=== PATIENT | female | born 1995 | race Caucasian/White ===

== ENCOUNTER 2018-01-31 22:07 | Inpatient (IN) | payer MEDICAID, SELFPAY ==
[2018-01-31 22:34] LABS: Pregnancy Test - Urine (BHCG) POSITIVE (Negative); Pregu Control Background? CLEAR/WHITE (CLR/WHITE); Pregu Control Bar Appear? YES (CONTROL BAR); Specific Gravity 1.011 (1.002-1.036)
[2018-01-31 22:59] LABS: Bilirubin Negative (Negative); Blood, Urine Large (Negative); Clarity TURBID (Clear); Glucose, Urine (Dipstick) Negative (Negative); Leukocyte Moderate (Negative); Nitrite Negative (Negative); Protein, Urine (Dipstick) Trace mg/dL (Neg-Trace); Specific Gravity, Urine 1.011 (1.002-1.036); Urobilinogen 0.2 mg/dL (0.2-1.0); pH, Urine 6.5 (5.0-9.0)
[2018-01-31 23:00] LABS: RBC/HPF GREATER THAN 50-TNTC HPF (0-3); Squamous Epithelial 0-3 HPF (0-3); WBC/HPF 21-50 HPF (0-3)
[2018-01-31 23:01] LABS: Pathc Cast-AUWi Flag 3.24 (0-2.49)
[2018-01-31 23:14] LABS: Bacteria/HPF 1+ HPF (None Seen)
[2018-01-31 23:15] LABS: Hyaline Casts/LPF 0-3 HYALINE CAST LPF (0-3 Hyaline)
[2018-01-31 23:29] LABS: #Eosinphils 0.1 thou/uL (0.0-0.7); #Lymphocytes 1.9 thou/uL (1.20-3.40); #Monocytes 0.9 thou/uL (0.11-0.59); #Neutrophils 10.6 thou/uL (1.40-6.50); %Basophils 0.3 % (0.0-1.0); %Eosinophils 0.4 % (0.0-10.0); %Monocytes 6.6 % (0.0-10.0); %Neutrophils 78.6 % (42.0-75.0); Hemoglobin 12.8 g/dL (12.0-16.0); Mean Corpuscular HGB CONC 33.9 g/dL (32.0-36.0); Mean Corpuscular Hemoglobin 30.7 pg (27.0-31.0); Mean Corpuscular Volume 90.7 fL (78.0-98.0); Mean Platelet Volume 8.4 fL (7.4-10.4); Platelet Count 170 thou/uL (130-400); RBC Distribution Width 12.4 % (11.5-14.5); Red Blood Cell (RBC) Count 4.18 mill/uL (4.20-5.40); White Blood Cell (WBC) Count 13.5 thou/uL (4.8-10.8)
[2018-01-31 23:51] LABS: ALT (SGPT) 15 U/L (8-55); AST (SGOT) 16 U/L (5-34); Albumin 3.5 g/dL (3.5-5.0); Alkaline Phosphatase 147 U/L (40-150); Anion Gap 15 mmol/L (10-20); BUN (Urea Nitrogen) 5 mg/dL (7.0-18.7); Bilirubin, Total 0.4 mg/dL (0.2-1.2); Calc. Creatinine Clearance 0 mL/min (70-130); Calcium 9.3 mg/dL (7.8-10.44); Carbon Dioxide 20 mmol/L (22-29); Chloride 103 mmol/L (98-107); Estimated GFR-MDRD Greater than 90; Glucose 75 mg/dL (70-105); Potassium 3.8 mmol/L (3.5-5.1); Protein, Total 6.5 g/dL (6.0-8.3); Sodium 134 mmol/L (136-145)
[2018-02-01] MEDS ORDERED: Lidocaine 1% (PF) 30 ML VIAL SC PRN (01:06)
[2018-02-01] MEDS ORDERED: Ibuprofen 800 MG TAB PO PRN (01:06)
[2018-02-01] MEDS ORDERED: Ondansetron HCl/PF 4 MG/2 ML Vial IVP PRN ×2 (01:06→02:38)
[2018-02-01] MEDS ORDERED: Promethazine HCl 25 MG/ML VIAL IM PRN ×2 (01:06→02:38)
[2018-02-01] MEDS ORDERED: Penicillin G Potassium 5 MILL.UNITS in Sodium Chloride 0.9% 100 ML IVPB SCH (01:15)
--- NOTE | 2018-02-01 01:17 | PDOC.LDHP ---
Labor and Delivery H&P Chief complaint: contractions, loss of fluid HPI: 23 y/o F presented to the ED complaining of urinary incontinence. The patient reports that she was unaware she was and was diagnosed in the ED. She reports that she started having LOF around 6pm along with cramping abdominal pain. She reports that now that she thinks about it she does feel the baby move. She reports she had some vaginal spotting around a month and a half ago that she thought was a period, but no recent vaginal bleeding. She denies vaginal d/c. She denies H/A, vision changes, RUQ pain other than the abdominal cramping. Current gestational age (weeks): 36 (36w0d) Due date: 03/01/18 Dating criteria: other (3T US) Grav: 1 Para: 0 Current complications: other (No care) Abnormal US findings: Yes (Anhydramnios ) Past Medical History: None Current medications: none Previous surgical history: other (Cyst removed from R ovary, tonsillectomy) Social history: tobacco use (5-6 cig/day), alcohol use (1-2 drinks/month) - Physical Exam Vital signs reviewed and normal: yes General: NAD Heart: RRR Lungs: CTAB Abdomen: gravid Extremeties: no edema FHT: category 1, variability present Blandon contractions every: 2-3 minutes - Vaginal Exam cm dilated: 6 Effacement: 90% Station: -1 - OB Labs RH: positive Antibody Screen: unknown HIV: unknown RPR: unknown HEPSAg: unknown 1 hour GCT: unknown GBS: unknown - Assessment L&D Assessment: labor 23 y/o @ 36.0 WGA by 36.0 wk US here in labor LOF @ 1800 on 01/31 SVE /-1 Grossly ruptured on exam. Anhydramnios on US Patient had no care - Plan Plan: admit to L&D -: -Will run all IOB labs including Hep B, HIV, RPR, UDS, Type & Screen -Continuous monitoring -Will initiate GBS ppx due to poor dating, possibly pre-term @ 36 wks and GBS unknown -Epidural if desired -Will recheck cervix in 2-3 hours and if unchanged, will initiate pitocin <Moni Michaud - Last Filed: 02/01/18 01:13> <Florencio Becker - Last Filed: 02/01/18 01:49> Allergies/Adverse Reactions: Allergies Allergy/AdvReac Type Severity Reaction Status Date / Time No Known Allergies Allergy Verified 02/01/18 00:54 Attending Addendum - Attending Addendum Date/Time: 02/01/18 0147 I personally evaluated the patient and discussed the management with Dr. Michaud. 23 yo WF G1 unknown with apparent LOF at 6 pm. USG shows vtx beasley at 2800+ gms. SVE= 6 cm, gross SROM. Fhts reassuring, UCs q 3-4 min. I agree with the History, Examination, Assessment and Plan documented above. <Florencio Becker - Last Filed: 02/01/18 01:49>
[2018-02-01] MEDS: Lactated Ringer's 1,000 ML IV SCH ×2 (01:50→17:08)
[2018-02-01] MEDS ORDERED: DISCONTINUE ALL PREVIOUS NARCOTICS FS SCH (02:00)
[2018-02-01] MEDS ORDERED: Bupivacaine 0.5% 20 ML, fentaNYL Citrate/PF 400 MCG in Sodium Chloride 0.9% 72 ML EPIDURAL SCH (02:00)
[2018-02-01] MEDS ORDERED: Acetaminophen 325 MG TAB PO PRN (02:38)
[2018-02-01] MEDS ORDERED: diphenhydrAMINE 50 MG/ML VIAL IVP PRN (02:38)
[2018-02-01] MEDS ORDERED: Naloxone HCl 0.4 mg/ml Vial IVP PRN ×2 (02:38)
[2018-02-01] MEDS ORDERED: Eucerin (Mineral Oil/Petrolatum,White) 30 gm Jar TOP PRN (02:38)
[2018-02-01] MEDS ORDERED: ePHEDrine/0.9% NaCl/PF SYRINGE 50 mg/10 ml SLOW IVP PRN (02:38)
[2018-02-01] MEDS ORDERED: Lactated Ringer's 500 ML IV PRN (02:38)
[2018-02-01] MEDS ORDERED: fentaNYL Citrate/PF 400 MCG, Bupivacaine 0.5% 20 ML in Sodium Chloride 0.9% 72 ML EPIDURAL SCH (02:45)
[2018-02-01] MEDS ORDERED: Communication Order-Pharmacy FS SCH (02:45)
[2018-02-01 03:17] VITALS: BMI 36.3
[2018-02-01] MEDS: Penicillin G 2.5 MILL.units 2.5 MILL.UNITS in Premix Bag 1 BAG IVPB SCH ×2 (06:00→17:08)
--- NOTE | 2018-02-01 07:54 | PDOC.OPDEL ---
OB Operative/Delivery Note Delivery Dr/Surgeon: Dr. Michaud with Dr. Becker attending Pre-Delivery Diagnosis: active labor Procedure/Post Delivery Dx: spontaneous vaginal delivery Weeks gestation: 36 (36w0d) Anesthesia: epidural - Findings A Sex: male - 1 min: 8 - 5 min: 9 - Additional Findings/Plan Placenta delivered: spontaneous Repaired Obstetrical Laceration: episiotomy (2nd degree) Compilations/Other Findings: This is a 23 year old female @ 36.0 wks who delivered a viable M at 0730 on 02/01/18. Following an uneventful antepartum course, a vigorous male was delivered over a 2nd degree episiotomy due to bradycardia in the second stage of labor in the occipitoanterior position. Anterior Shoulder and then remainder of the body delivered. No nuchal cord. The head was held down and mouth and nares were bulb suctioned. Cord clamped and cut and cord blood collected. Placenta delivered intact with a 3 vessel cord noted. Fundal massage was performed and the fundus was firm. The cervix and vagina were inspected and found to have 2nd degree episiotomy noted and repaired with 3-0 Chromic in the usual fashion with good approximation and hemostasis. Infant went to nursery in good condition for routine care after one hour of [id number]. Apgars were 8/9 at 1 & 5 minutes, respectively. Patient tolerated delivery well and went to after routine recovery/care. QBL: 256 mL Placenta sent for path Post delivery plan: routine recovery <Moni Michaud - Last Filed: 02/01/18 07:50> Attending Addendum - Attending Addendum Date/Time: 02/01/18 08 Present to attend this with Dr. michaud. with 2* MLE to expedite delivery, terminal bradycadia. Infant vigourous at delivery, NICU personnel present to assess. I agree with the Examination, Assessment and Plan documented above. <Florencio Becker - Last Filed: 02/01/18 08:24>
[2018-02-01] MEDS: NS / Oxytocin 40 units/1000ml 1,000 ML IV PRN ×2 (08:20→11:23)
--- NOTE | 2018-02-01 10:07 | ULT ---
PRELIMINARY REPORT/[facility]/EMERGENTY AFTER-HOURS PROCEDURE Addendum created by Edin Mott MD on 02/01/2018 3:11 AM Central Time ([place] & [place]) Findings were discus sed with Dr Becker (not CRUZ HESS). Addendum created by Edin Mott MD on 02/01/2018 1:48 AM Central Time ([place] & [place]) THIS REPORT CONTAINS FINDINGS THAT MAY BE CRITICAL TO PATIENT CARE. The findings were verbally commun icated via telephone conference with CRUZ HESS at 1:45 AM CDT on 02/01/2018. The findings were acknowledged and understood. Initial Report created on 02/01/2018 1:39 AM Central Time ([place] & [place]) US After First Trimester, Transabdominal CLINICAL HISTORY: 23 years old, female; Pain; Other: Abd pain, leaking fluid, ? unknown dates; Gestational age or lmp: 35w6d; TECHNIQUE: Real-time transabdominal obstetrical ultrasound of the maternal pelvis and a second or third trimeste r with image documentation. COMPARISON: No relevant prior studies available. FINDINGS: Fetus: Single living intrauterine gestation. Heart rate: 116 bpm Presentation: Vertex. Placenta: Anterior. No abruption. Amniotic fluid: Anhydramnios. LANDRY 0 cm. Anatomy: Visualized anatomy is unremarkable. BIOMETRICS Gestational age by US: 35w6d MONSE(US): 03/01/2018 EFW: 2829g MATERNAL: Uterus: No myometrial mass. Cervix: Not well visualized. Free fluid: No significant free fluid. IMPRESSION: Single viable intrauterine . Anhydramnios presumably due to PROM. Thank you for allowing us to participate in the care of your patient. Dictated and Authenticated by: Edin Mott MD 02/01/2018 1:39 AM Central Time ([place] & [place]) FINAL REPORT OBSTETRIC SONOGRAM LIMITED: DATE: 01/31/2018. TIME: Performed on an emergency basis at 2350 hours. HISTORY: Third-trimester . Pain with fluid leak. FINDINGS: Agree with the preliminary report by Dr. Mott from [facility]. No significant amniotic fluid is visible sonographically. POS: [place]
[2018-02-01] MEDS ORDERED: Bisacodyl 10 MG SUPP PR PRN (11:31)
[2018-02-01] MEDS ORDERED: NS / Oxytocin 40 units/1000ml 1,000 ML IV SCH (11:31)
[2018-02-01] MEDS ORDERED: Milk Of Magnesia 30 ML UDCUP PO PRN (11:31)
[2018-02-01] MEDS ORDERED: Benzocaine/Menthol 20-0.5% 60 ML CAN TOP PRN (11:31)
[2018-02-01] MEDS ORDERED: Lanolin Ointment 7 GM TUBE TOP PRN (11:31)
[2018-02-01] MEDS ORDERED: Prenatal Vitamin 1 TAB PO SCH (12:00)
[2018-02-01] MEDS ORDERED: Docusate Calcium (SURFAK) 240 MG CAP PO SCH (12:00)
[2018-02-01] MEDS: Ibuprofen 800 MG TAB PO SCH ×2 (17:07→20:53)
[2018-02-01] MEDS: Docusate Calcium (SURFAK) 240 MG CAP PO SCH (20:52)
[2018-02-02] MEDS: Ibuprofen 800 MG TAB PO SCH ×3 (05:44→21:23)
[2018-02-02 05:52] LABS: Mean Corpuscular HGB CONC 33.7 g/dL (32.0-36.0); Mean Corpuscular Hemoglobin 31.1 pg (27.0-31.0); Mean Corpuscular Volume 92.3 fL (78.0-98.0); Mean Platelet Volume 8.7 fL (7.4-10.4); Platelet Count 169 thou/uL (130-400); RBC Distribution Width 12.6 % (11.5-14.5); Red Blood Cell (RBC) Count 3.53 mill/uL (4.20-5.40); White Blood Cell (WBC) Count 14.1 thou/uL (4.8-10.8)
--- NOTE | 2018-02-02 06:06 | PDOC.PP ---
Post Progress Note Post Day #: 1 Subjective: Doing well, no new complaints. baby in room PO intake tolerated: yes Flatus: yes Ambulation: yes Vital Signs (12 hours) Temp Pulse Resp BP Pulse Ox 02/02/18 03:54 98.3 F 77 18 121/80 96 02/01/18 23:31 98.7 F 79 18 110/57 L 96 02/01/18 19:42 98.4 F 84 18 117/69 96 Weight Weight 180 lb - Physical Examination General: NAD Cardiovascular: no m/r/g Respiratory: clear to auscultation bilaterally Abdominal: + bowel sounds, lochia, no distention, appropriately TTP Extremities: negative homans (B) Neurological: no gross focal deficits Psychiatric: A&Ox3, normal affect Result Diagrams: 02/02/18 05:39 01/31/18 23:24 Additional Labs: Post Labs Blood Type A POSITIVE 01/31/18 23:24 (1) Vaginal delivery Code(s): O80 - ENCOUNTER FOR FULL-TERM UNCOMPLICATED DELIVERY Status: Acute - Assessment/Plan Routine care. Currently PPD1. Hct ok. Anticipate [facility] PPD2 tomorrow AM. Monitor for today.
[2018-02-02] MEDS: Prenatal Vitamin 1 TAB PO SCH (08:46)
[2018-02-02] MEDS: Docusate Calcium (SURFAK) 240 MG CAP PO SCH ×2 (08:46→21:23)
[2018-02-03 07:57] VITALS: BP 114/65; TEMP 98.5
[2018-02-03] MEDS: Docusate Calcium (SURFAK) 240 MG CAP PO SCH (08:23)
[2018-02-03] MEDS: Prenatal Vitamin 1 TAB PO SCH (08:23)
[2018-02-03] MEDS: Ibuprofen 800 MG TAB PO SCH (08:23)
--- NOTE | 2018-02-03 08:48 | DIS ---
DATE OF ADMISSION: 02/01/2018 DATE OF DISCHARGE: 02/03/2018 DISCHARGE DIAGNOSES: 1. Intrauterine at 36 weeks by a 36-week ultrasound. 2. Active labor. 3. No care. HOSPITAL COURSE: The patient was admitted and ultimately had a term spontaneous vaginal delivery. F or complete details, please refer to the dictated delivery note. Her course has been unco mplicated. She has been tolerating p.o., voiding on her own, having decreased lochia and good pain c ontrol. Vital signs today on day #2, blood pressure is 114/65, temperature 98.5, pulse of 81, respiratory rate of 20, satting 97% on room air. Her post-delivery hemoglobin is 11.0, hematocrit 32.5, platelets 169,000. The patient will be discharged to home with [id number] ibuprofen to be taken as needed for pain . She has instructions to follow up in 6 weeks with an OB provider for post-hardy care. If she is u nable to find one on her own we have asked that she follow up with [facility] [place]. She has also been given instruction to seek medical attention sooner if she experiences fever, increasin g pain or bleeding.
[2018-02-03] MEDS: Adacel (T-DAP) 0.5 ML VIAL IM ONE ×2 (11:33→12:07)
== END 2018-02-03 12:40 | disposition home or self-care (01) | DRG 807 ==
LOC: ERS 22:07 → L&D 02-01 01:59 → 3SW 02-01 15:20
PROVIDERS: ADMIT Obstetrics & Gynecology; ATTEND Obstetrics & Gynecology
PROC: 10E0XZZ Delivery of Products of Conception, External Approach (ICD-10-PCS; principal; 2018-02-01)
PROC: 0W8NXZZ Division of Female Perineum, External Approach (ICD-10-PCS; 2018-02-01)
DX: O60.14X0 Preterm labor third trimester with preterm delivery third trimester, not applicable or unspecified (principal); Z37.0 Single live birth; Z3A.36 36 weeks gestation of pregnancy
CPT/HCPCS: 36415; 51702; 76815; 80053; 81003; 81015; 81025; 84702; 85025; 85027; 86900; 86901; 87086; 90471; 90686; 90715; 99285; 99406; G0008; J2001; J2540; J3010; J3490; J7050

== ENCOUNTER 2020-06-28 14:24 | Emergency (ER) | payer MEDICAID, SELFPAY ==
[2020-06-28 15:00] LABS: Pregnancy Test - Urine (BHCG) Negative (Negative); Pregu Control Background? CLEAR/WHITE (CLR/WHITE); Pregu Control Bar Appear? YES (CONTROL BAR); Specific Gravity 1.006 (1.002-1.036)
[2020-06-28 15:03] LABS: Bacteria/HPF 3+ HPF (None Seen); Bilirubin 1+ (Negative); Blood, Urine 2+ (Negative); Clarity Turbid (Clear); Glucose, Urine (Dipstick) Normal (Negative); Ketone, Urine Negative (Negative); Leukocyte 500 Leu/uL (Negative); Nitrite 1+ (Negative); Protein, Urine (Dipstick) 10 mg/dL (Neg-Trace); RBC/HPF 21-50 HPF (0-3); Specific Gravity, Urine 1.006 (1.002-1.036); Urobilinogen Normal mg/dL (Less than 2); WBC/HPF Greater than 50 HPF (0-3); pH, Urine 6.5 (5.0-9.0)
== END 2020-06-28 15:38 | disposition home or self-care (01) ==
LOC: ERS 14:24
DX: N39.0 Urinary tract infection, site not specified (principal); F17.210 Nicotine dependence, cigarettes, uncomplicated
CPT/HCPCS: 81003; 81015; 81025; 99283

== ENCOUNTER 2022-01-21 17:24 | Emergency (ER) | payer SELFPAY | END 2022-01-21 18:52 | disposition home or self-care (01) | LOC: ERS 17:24 | DX: J01.90 Acute sinusitis, unspecified (principal) | CPT/HCPCS: 99282 ==

== ENCOUNTER 2022-05-18 15:14 | Emergency (ER) | payer SELFPAY ==
[2022-05-18] MEDS ORDERED: Lidocaine 1% PF 5 ML VIAL ONE (16:44)
== END 2022-05-18 18:02 | disposition home or self-care (01) ==
LOC: ERS 15:14
DX: N75.8 Other diseases of Bartholin's gland (principal); F17.210 Nicotine dependence, cigarettes, uncomplicated
CPT/HCPCS: 56420

== ENCOUNTER 2023-03-23 07:18 | Emergency (ER) | payer MEDICAID, SELFPAY ==
[2023-03-23] MEDS ORDERED: Dexamethasone 10 MG/ML VIAL ONE (07:31)
== END 2023-03-23 07:44 | disposition home or self-care (01) ==
LOC: ERS 07:18
DX: J06.9 Acute upper respiratory infection, unspecified (principal); F17.290 Nicotine dependence, other tobacco product, uncomplicated
CPT/HCPCS: 99283; J1100

== ENCOUNTER 2024-10-23 07:07 | Emergency (ER) | payer MEDICAID, SELFPAY | END 2024-10-23 07:43 | disposition home or self-care (01) | LOC: ERS 07:07 | DX: R05.9 Cough, unspecified (principal); R06.2 Wheezing | CPT/HCPCS: 87428; 99284 ==